=== PATIENT | male | born 1960 | race Caucasian/White ===

== ENCOUNTER 2017-04-15 09:07 | Day surgery (SDC) | payer OTHER ==
[2017-04-15] MEDS ORDERED: D5 LR 1000 ML 1,000 ML IV ONE (09:20)
[2017-04-15] MEDS ORDERED: DIPRIVAN VIAL 20 ML ONE ×2 (10:54→11:19)
[2017-04-15 12:08] VITALS: BP 111/62
== END 2017-04-15 11:55 | disposition home or self-care (01) ==
LOC: SURG1 09:07
PROVIDERS: ATTEND Internal Medicine Gastroenterology
PROC: 0DJD8ZZ Inspection of Lower Intestinal Tract, Via Natural or Artificial Opening Endoscopic (ICD-10-PCS; principal; 2017-04-15 13:45)
DX: Z86.010 Personal history of colon polyps (principal); K57.30 Diverticulosis of large intestine without perforation or abscess without bleeding; K64.0 First degree hemorrhoids
CPT/HCPCS: A4217; J3490; J7120

== ENCOUNTER 2017-11-04 06:52 | Day surgery (SDC) | payer OTHER ==
[2017-11-04] MEDS ORDERED: D5 LR 1000 ML 1,000 ML IV ONE (07:10)
[2017-11-04 07:17] VITALS: BP 134/72
== END 2017-11-04 08:00 | disposition home or self-care (01) ==
LOC: SURG1 06:52
PROVIDERS: ATTEND Internal Medicine Gastroenterology
DX: Z87.19 Personal history of other diseases of the digestive system (principal); Z53.8 Procedure and treatment not carried out for other reasons
CPT/HCPCS: J7120